=== PATIENT | male | born 1995 | race Two or more races ===

== ENCOUNTER 2019-09-21 14:49 | Emergency (ER) | payer OTHER ==
[~2019-09-21] VITALS: Ht 182.9 cm; Wt 72.6 kg
[2019-09-21 15:26] VITALS: BP 127/80
== END 2019-09-21 17:45 | disposition left against medical advice (07) ==
LOC: EDBD 14:49 → ER 14:49
DX: S81.802D Unspecified open wound, left lower leg, subsequent encounter (principal); X58.XXXD Exposure to other specified factors, subsequent encounter; Z53.21 Procedure and treatment not carried out due to patient leaving prior to being seen by health care provider

== ENCOUNTER 2019-10-10 22:48 | Inpatient (IN) | payer SELFPAY ==
[~2019-10-10] VITALS: Ht 182.9 cm; Wt 73.2 kg
[2019-10-11 00:15] LABS: Basophils # (auto) 0.1 10 ^3/uL (0-0.2); Basophils % (auto) 1.2 % (0.0-2.0); Eosinophils # (auto) 0.2 10 ^3/uL (0-0.8); Hematocrit 44.4 % (41.0-53.0); Hemoglobin 15.1 g/dL (13.5-17.5); Lymphocytes # (auto) 2.1 10 ^3/uL (0.4-5.4); Lymphocytes % (auto) 26.6 % (10.0-50.0); Mean Corpuscular Hemoglobin 29.7 pg (28.0-32.0); Mean Corpuscular Hgb Conc. 34.1 g/dL (32.0-36.0); Mean Corpuscular Volume 87.1 fL (80.0-100.0); Monocytes # (auto) 0.5 10 ^3/uL (0-1.3); Monocytes % (auto) 6.9 % (0.0-12.0); Neutrophils # (auto) 4.9 10 ^3/uL (1.6-8.6); Neutrophils % (auto) 62.3 % (37.0-80.0); Nucleated Red Blood Cells % 0.1 %; Platelet Count (auto) 393 10^3/uL (140-450); Red Cell Distribution Width 12.9 % (11.8-14.3); White Blood Cell 7.8 10^3/uL (4.4-10.8)
[2019-10-11 00:33] LABS: Albumin 3.6 g/dL (3.4-5.0); BUN/Creatinine Ratio 12.8; Calcium 9.2 mg/dL (8.5-10.1)
[2019-10-11 00:36] LABS: Bilirubin, Total 0.4 mg/dL (0.2-1.0); Total Protein 7.6 g/dL (6.4-8.2)
[2019-10-11] MEDS ORDERED: ONDANSETRON HCL 4 MG/2 ML VIAL IV ONE (02:30)
[2019-10-11] MEDS ORDERED: MORPHINE SULFATE 4 MG/ML SYR/VIAL IV ONE (02:30)
[2019-10-11] MEDS ORDERED: CLINDAMYCIN 900MG IV 50 ML IV ONE (03:15)
[2019-10-11] MEDS ORDERED: cefTRIAXone 1GM/50ML D5W 50 ML IV ONE (03:15)
[2019-10-11] MEDS ORDERED: HYDROmorphone HCL 2 MG/ML VL IV ONE (03:30)
[2019-10-11] MEDS ORDERED: HYDROcodone-ACET 10/325MG TAB PO ONE (04:15)
[2019-10-11] MEDS ORDERED: NEOMYCIN-BACITRACIN-POLYM UNITDOSE PKG TOP OINT TOP ONE (05:15)
[2019-10-11] MEDS ORDERED: SODIUM CHLORIDE 0.9% 1,000 ML IV SCH (08:14)
[2019-10-11] MEDS ORDERED: ACETAMINOPHEN 325 MG TAB PO PRN (08:15)
[2019-10-11] MEDS ORDERED: TEMAZEPAM 15 MG CAP PO PRN (08:15)
[2019-10-11] MEDS ORDERED: ONDANSETRON HCL 4 MG/2 ML VIAL IV PRN (08:15)
[2019-10-11] MEDS ORDERED: DOCUSATE SOD 100 MG CAP PO PRN (08:15)
[2019-10-11] MEDS ORDERED: DEXTROSE (50%) 50ML SYRG IV PRN (08:15)
[2019-10-11] MEDS ORDERED: LORazepam 0.5 MG TAB PO PRN (08:15)
[2019-10-11 08:58] LABS: Basophils # (auto) 0.1 10 ^3/uL (0-0.2); Basophils % (auto) 1.1 % (0.0-2.0); Eosinophils # (auto) 0.3 10 ^3/uL (0-0.8); Hematocrit 40.7 % (41.0-53.0); Hemoglobin 13.9 g/dL (13.5-17.5); Lymphocytes # (auto) 2.6 10 ^3/uL (0.4-5.4); Lymphocytes % (auto) 27.1 % (10.0-50.0); Mean Corpuscular Hemoglobin 29.6 pg (28.0-32.0); Mean Corpuscular Hgb Conc. 34.2 g/dL (32.0-36.0); Mean Corpuscular Volume 86.8 fL (80.0-100.0); Monocytes # (auto) 0.8 10 ^3/uL (0-1.3); Monocytes % (auto) 8.7 % (0.0-12.0); Neutrophils # (auto) 5.8 10 ^3/uL (1.6-8.6); Neutrophils % (auto) 60.1 % (37.0-80.0); Platelet Count (auto) 376 10^3/uL (140-450); Red Blood Cells 4.69 10^6/uL (4.5-5.90); Red Cell Distribution Width 12.9 % (11.8-14.3); White Blood Cell 9.7 10^3/uL (4.4-10.8)
[2019-10-11 09:07] LABS: Potassium 3.7 mmol/L (3.5-5.1)
--- NOTE | 2019-10-11 09:51 | NUR ---
assessment Per ss consult rehab/SNF for wound care. I informed ER nurse that patient has no insurance so he has no payer source for SNF. Patient does not have funds to self pay for rehab per RN. I informed RN to teach family at bedside if patient is returning home from ER. Addendum: 10/11/19 at 1554 by Shelley Chaves Amended: Links added.
[2019-10-11] MEDS: ACCU-CHEK COMFORT CURVE STRIP VI SCH ×2 (11:14→17:57)
[2019-10-11] MEDS: CLINDAMYCIN 600MG IV 50 ML IV SCH ×3 (11:14→23:59)
[2019-10-11] MEDS: HYDROmorphone HCL 2 MG/ML VL IV PRN ×2 (11:15→20:44)
[2019-10-11 12:00] VITALS: BP 142/88
[2019-10-11] MEDS: InsuLIN REG 1unit/0.01ml Soln (100units/ml) SC SCH ×2 (12:00→17:57)
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
[2019-10-11 17:09] VITALS: BP 112/89
--- NOTE | 2019-10-11 18:51 | NUR ---
[facility]AB SENT
--- NOTE | 2019-10-11 18:58 | NUR ---
ENDORSED CARE TO NIGHT RN
--- NOTE | 2019-10-11 19:35 | NUR ---
Opening Shift Note Assumed care of patient, awake and alert. No S/S of distress/SOB. Left calf dressed and wrapped, dressing intact with no signs of drainage. Right knee covered with optifoam, dressing lifting, dressing changed. Pt complains of pain in lower extremities, addressed with prescribed pain medication. Safety measures in place, bed in lowest position, bed rails raised x2, call light within reach. Instructed on POC and to call for assist, when leaving to smoke and when returning from smoking, will continue to monitor for changes Q1hr and PRN.
--- NOTE | 2019-10-11 20:00 | NUR ---
ANGIOPLASTY ACCESS SITE ASSESSED, SITE OPEN TO AIR, NO S/S OF INFECTION, NO DRAINAGE OR PAIN. WILL CONTINUE TO MONITOR. Addendum: 10/12/19 at 0050 by Neema Mccormick RN RN DISREGARD, WRONG PATIENT.
--- NOTE | 2019-10-11 20:45 | NUR ---
Pt off unit to smoke.
--- NOTE | 2019-10-11 21:10 | NUR ---
Pt back on unit from smoking.
[2019-10-11 22:00] VITALS: BP 105/68
--- NOTE | 2019-10-12 | NUR ---
PT REFUSED BLOOD GLUCOSE CHECK AND INSULIN. NO S/S OF DISTRESS. WILL CONTINUE TO MONITOR.
--- NOTE | 2019-10-12 00:14 | NUR ---
PT OFF UNIT TO SMOKE
--- NOTE | 2019-10-12 00:29 | NUR ---
PT BACK FROM SMOKING
[2019-10-12] MEDS: HYDROcodone-ACET 5/325MG TAB PO PRN ×2 (01:21→15:26)
[2019-10-12 05:00] VITALS: BP 99/57
[2019-10-12] MEDS: InsuLIN REG 1unit/0.01ml Soln (100units/ml) SC SCH ×2 (05:31)
[2019-10-12] MEDS: CLINDAMYCIN 600MG IV 50 ML IV SCH ×2 (05:31→13:23)
[2019-10-12] MEDS: ACCU-CHEK COMFORT CURVE STRIP VI SCH ×2 (05:31)
--- NOTE | 2019-10-12 07:50 | NUR ---
Opening Shift Note Assumed care of patient, awake and alert. No S/S of distress/SOB or pain. Instructed on POC and to call for assist PRN, will continue to monitor for changes Q1hr and PRN. Bed locked in lowest position with two side rails up and call light in reach.
[2019-10-12 08:00] VITALS: BP 109/51
[2019-10-12 09:00] VITALS: BP 109/51
[2019-10-12 13:00] VITALS: BP 116/67
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
--- NOTE | 2019-10-12 16:20 | NUR ---
Discharge instructions given as ordered. Encourage to follow up with PMD as instructed. All questions and concerns addressed. Patient verbalized understanding. Medication reconciliation form completed and copy given to patient. Home medications held in Pharmacy returned to patient, and needed vaccines given. IV removed with catheter intact, pressure dressing applied. Telemetry unit returned to ICU. Patient taken to vehicle via wheelchair with all personal belongings, accompanied by staff and family member. No distress noted at time of departure. Patient went to [facility] and picked up all prescribed medications. Supplies for wound care given to patient and patient educated with return demonstration on wound dressing change. Answered all questions and patient verbalized understanding.
== END 2019-10-12 16:15 | disposition home or self-care (01) | DRG 603 ==
LOC: ER 22:48 → OVERFLOW 22:49 → WEST WING 10-11 10:54
PROVIDERS: ADMIT Hospitalist; ATTEND Family Medicine
DX: L03.115 Cellulitis of right lower limb (principal); L97.819 Non-pressure chronic ulcer of other part of right lower leg with unspecified severity; L03.116 Cellulitis of left lower limb; S62.305A Unspecified fracture of fourth metacarpal bone, left hand, initial encounter for closed fracture; S81.801A Unspecified open wound, right lower leg, initial encounter; V29.3XXA Motorcycle rider (driver) (passenger) injured in unspecified nontraffic accident, initial encounter; Y93.89 Activity, other specified; Y92.89 Other specified places as the place of occurrence of the external cause; Y99.8 Other external cause status; R73.9 Hyperglycemia, unspecified; Z79.899 Other long term (current) drug therapy
CPT/HCPCS: 36415; 73090; 73120; 73700; 80048; 80053; 82962; 83036; 83605; 85025; 87040; 87077; 87081; 87186; 87205; 96365; 96366; 96375; 96376; G0378; J0696; J2405; J3490